=== PATIENT | male | born 1950 | race Caucasian/White ===

== ENCOUNTER 2020-09-16 12:56 | Emergency (ER) | payer MEDICARE, BC ==
[2020-09-16] MEDS ORDERED: Sodium Chloride 0.9% 10 ML Syringe FLUSH PRN (13:04)
[2020-09-16 13:26] VITALS: BP 114/65; PULSE 65
[2020-09-16 13:37] LABS: ANION GAP 8.5 meq/L (7-15); CHLORIDE,CL 105 mmol/L (98-107); SODIUM,NA 138 mmol/L (136-145)
[2020-09-16] MEDS: Loperamide 2 MG Tab PO ONE (14:12)
--- NOTE | 2020-09-16 14:19 | EDM.PDOC ---
ED HPI GENERAL MEDICAL PROBLEM - General Chief Complaint: Abdominal Pain Stated Complaint: diarrhea Time Seen by Provider: 09/16/20 13:20 Source of Information: Reports: Patient History Limitations: Reports: No Limitations - History of Present Illness INITIAL COMMENTS - FREE TEXT/NARRATIVE: Patient presents for complaint of diarrhea. Originally went to [facility] but sent here as they were concerned that it could be due to Covid. He reports being ill initially with nausea. Did not really vomit but "tried" to vomit and noted that once when standing over toilet he became very clammy and sweaty. That resolved. He then developed watery stools. Is currently improving but notes he has a stool whenever he eats. Intermittent nausea which is also improving. No one else sick. No fevers/chills. No headache/body aches. No URI/Cough complaints. Still urinating. No blood in stool. Has not taken anything for the loose stools. - Related Data Allergies Allergy/AdvReac Type Severity Reaction Status Date / Time No Known Allergies Allergy Verified 07/30/15 13:20 Home Meds: Home Meds Lactobacillus Combo No.11 [Probiotic] 1 each PO DAILY 02/28/13 [History] Multivitamin [Multi-Vitamin Daily] 1 each PO DAILY 02/28/13 [History] Ubidecarenone [Co Q-10] 100 mg PO DAILY 02/28/13 [History] Valsartan [Diovan] 160 mg PO DAILY 02/28/13 [History] Non-Formulary Medication [NF Drug] 1 each PO DAILY 07/30/15 [History] Past Medical History Cardiovascular History: Reports: High Cholesterol, Hypertension Gastrointestinal History: Reports: GERD, Other (See Below) Other Gastrointestinal History: blood in stools ED ROS GENERAL - Review of Systems Review Of Systems: See Below Constitutional: Reports: Malaise. Denies: Fever, Chills, Night Sweats HEENT: Reports: No Symptoms Respiratory: Reports: No Symptoms Cardiovascular: Reports: No Symptoms GI/Abdominal: Reports: Abdominal Pain (cramping at times), Diarrhea, Decreased Appetite, Nausea, Vomiting. Denies: Constipation, Difficulty Swallowing, Distension, Hematemesis, Hematochezia, Mucous in Stool : Reports: No Symptoms Musculoskeletal: Reports: No Symptoms Skin: Reports: No Symptoms Neurological: Reports: No Symptoms Psychiatric: Reports: No Symptoms ED EXAM, GENERAL - Physical Exam Exam: See Below Exam Limited By: No Limitations General Appearance: Alert, WD/WN, No Apparent Distress Ears: Hearing Grossly Normal Nose: No: Nasal Deformity, Nasal Swelling, Nasal Drainage Throat/Mouth: Normal Lips, Normal Voice, No Airway Compromise Head: Atraumatic, Normocephalic Neck: Supple Respiratory/Chest: Lungs Clear, Normal Breath Sounds Cardiovascular: Regular Rate, Rhythm, No Murmur GI/Abdominal: Normal Bowel Sounds, Soft, Non-Tender, No Distention (Male) Exam: Deferred Rectal (Males) Exam: Deferred Back Exam: No: CVA Tenderness (L), CVA Tenderness (R) Extremities: Non-Tender, Normal Capillary Refill Neurological: Alert, Oriented, Normal Cognition, Normal Gait, No Motor/Sensory Deficits Psychiatric: Normal Affect, Normal Mood Skin Exam: Warm, Dry, Intact, Normal Color Course - Vital Signs Last Recorded V/S: Last Vital Signs Temp 36.4 C 09/16/20 13:00 Pulse 65 09/16/20 13:00 Resp 14 09/16/20 13:00 BP 114/65 09/16/20 13:00 Pulse Ox 100 09/16/20 13:00 - Orders/Labs/Meds Orders: Active Orders 24 hr Category Date Time Status Peripheral IV Insertion Adult [OM.PC] Routine Oth 09/16/20 13:04 Ordered Labs: Laboratory Tests 09/16/20 09/16/20 09/16/20 Range/Units 13:11 13:11 13:11 WBC 6.7 (4.0-10.2) K/uL RBC 4.60 (4.33-5.41) M/uL Hgb 15.5 (13.1-16.8) g/dL Hct 44.9 (39.0-49.0) % MCV 97.6 (84.0-98.0) fL MCH 33.7 H (28.2-33.3) pg MCHC 34.5 (31.7-36.0) g/dL RDW 13.2 (11.2-14.1) % Plt Count 118 L (150-350) K/uL Neut % (Auto) 77.9 (45.0-80.0) % Lymph % (Auto) 12.3 (10.0-50.0) % [place] % (Auto) 8.7 (2.0-14.0) % Eos % (Auto) 0.8 (0.0-5.0) % Baso % (Auto) 0.3 (0.0-2.0) % Neut # (Auto) 5.18 (1.40-7.00) K/uL Lymph # (Auto) 0.82 (0.50-3.50) K/uL [place] # (Auto) 0.58 (0.00-1.00) K/uL Eos # (Auto) 0.05 (0.00-0.50) K/uL Baso # (Auto) 0.02 (0.00-0.20) K/uL Sodium 138 (136-145) mmol/L Potassium 4.5 (3.5-5.1) mmol/L Chloride 105 (98-107) mmol/L Carbon Dioxide 24.5 (21.0-32.0) mmol/L Anion Gap 8.5 (7-15) meq/L BUN 13 (7-18) mg/dL Creatinine 0.96 (0.51-1.17) mg/dL Est Cr Clr Drug Dosing TNP Estimated GFR (MDRD) > 60 mL/min Glucose 130 H (70-99) mg/dL Calcium 8.3 L (8.5-10.1) mg/dL Magnesium 1.9 (1.8-2.4) mg/dL Total Bilirubin 0.7 (0.2-1.0) mg/dL AST 56 H (15-37) U/L ALT 68 (12-78) U/L Alkaline Phosphatase 126 H (46-116) IU/L Total Protein 7.1 (6.4-8.2) g/dL Albumin 3.0 L (3.4-5.0) g/dL SARS-CoV-2 RNA (FARAZ) (NEGATIVE) 09/16/20 Range/Units 13:16 WBC (4.0-10.2) K/uL RBC (4.33-5.41) M/uL Hgb (13.1-16.8) g/dL Hct (39.0-49.0) % MCV (84.0-98.0) fL MCH (28.2-33.3) pg MCHC (31.7-36.0) g/dL RDW (11.2-14.1) % Plt Count (150-350) K/uL Neut % (Auto) (45.0-80.0) % Lymph % (Auto) (10.0-50.0) % [place] % (Auto) (2.0-14.0) % Eos % (Auto) (0.0-5.0) % Baso % (Auto) (0.0-2.0) % Neut # (Auto) (1.40-7.00) K/uL Lymph # (Auto) (0.50-3.50) K/uL [place] # (Auto) (0.00-1.00) K/uL Eos # (Auto) (0.00-0.50) K/uL Baso # (Auto) (0.00-0.20) K/uL Sodium (136-145) mmol/L Potassium (3.5-5.1) mmol/L Chloride (98-107) mmol/L Carbon Dioxide (21.0-32.0) mmol/L Anion Gap (7-15) meq/L BUN (7-18) mg/dL Creatinine (0.51-1.17) mg/dL Est Cr Clr Drug Dosing Estimated GFR (MDRD) mL/min Glucose (70-99) mg/dL Calcium (8.5-10.1) mg/dL Magnesium (1.8-2.4) mg/dL Total Bilirubin (0.2-1.0) mg/dL AST (15-37) U/L ALT (12-78) U/L Alkaline Phosphatase (46-116) IU/L Total Protein (6.4-8.2) g/dL Albumin (3.4-5.0) g/dL SARS-CoV-2 RNA (FARAZ) Negative (NEGATIVE) Meds: Medications Discontinued Medications Generic Name Dose Route Start Last Admin Trade Name Freq PRN Reason Stop Dose Admin Loperamide HCl 4 mg 09/16/20 14:04 09/16/20 14:12 Loperamide 2 Mg Tab PO 09/16/20 14:05 4 mg ONETIME ONE Administration Sodium Chloride 10 ml 09/16/20 13:04 Sodium Chloride 0.9% 10 Ml Syringe FLUSH ASDIRECTED PRN Keep Vein Open - Re-Assessments/Exams Free Text/Narrative Re-Assessment/Exam: 09/16/20 16:24 Normal WBC/Na/K. Lower platelets, patient has history of thrombocytopenia. Mildly low calcium. AST/alk phos mildly elevated. Vital signs stable. Exam nonfocal. Covid negative Suspect most likely gastroenteritis. Imodium dose given in ER. Reassurance. Home/rest/stay hydrated. Advance diet as tolerated. Return for recheck if symptoms persist or he has sudden worsening. Departure - Departure Time of Disposition: 14:06 Disposition: Home, Self-Care 01 Condition: Good Clinical Impression: Gastroenteritis - Discharge Information *COPY OF PRESCRIPTION DRUG MONITORING REPORT IN PATIENT SHAUNNA: Not Applicable Instructions: Viral Gastroenteritis, Adult, [id number] Referrals: Alejandra Loco NP [Primary Care Provider] - Forms: ED Department Discharge Additional Instructions: Follow up as needed if it does not start to improve/does not follow a "normal" viral course as we discussed. Avoid dairy for 4-5 days. Avoid overload of bread/pizza type meals. Advance diet as tolerated. OK to take Imodium as we discussed. Return for recheck if you start to worsen again. Sepsis Event Note (ED) - Evaluation Sepsis Screening Result: No Definite Risk - Focused Exam Vital Signs: Vital Signs Temp Pulse Resp BP Pulse Ox 09/16/20 13:00 36.4 C 65 14 114/65 100 - My Orders Last 24 Hours: My Active Orders 09/16/20 13:04 Peripheral IV Insertion Adult [OM.PC] Routine - Assessment/Plan Last 24 Hours: My Active Orders 09/16/20 13:04 Peripheral IV Insertion Adult [OM.PC] Routine
== END 2020-09-16 14:30 | disposition home or self-care (01) ==
LOC: LL.ED 12:56
DX: K52.9 Noninfective gastroenteritis and colitis, unspecified (principal); E78.00 Pure hypercholesterolemia, unspecified; I10 Essential (primary) hypertension; Z20.822 Contact with and (suspected) exposure to COVID-19; Z79.899 Other long term (current) drug therapy
CPT/HCPCS: 36415; 80053; 83735; 85025; 99283; 99284; A9270-GY; U0002

== ENCOUNTER 2021-08-23 13:10 | Emergency (ER) | payer MEDICARE, BC ==
[2021-08-23] MEDS ORDERED: Morphine 10 MG/ML Syringe IVPUSH ONE ×2 (13:30→15:22)
[2021-08-23] MEDS ORDERED: Ondansetron 4 MG/2 ML SDV IVPUSH ONE (13:30)
[2021-08-23] MEDS ORDERED: Sodium Chloride 0.9% 1,000 ML IV ONE (13:36)
[2021-08-23 13:44] LABS: ANION GAP 9.5 meq/L (7-15); CHLORIDE,CL 103 mmol/L (98-107); SODIUM,NA 138 mmol/L (136-145)
[2021-08-23 13:45] LABS: ESTIMATED GFR 72 mL/min (>=60)
[2021-08-23 14:25] VITALS: BP 109/47; PULSE 59
== END 2021-08-23 16:00 ==
LOC: LL.ED 13:10
DX: S72.342A Displaced spiral fracture of shaft of left femur, initial encounter for closed fracture (principal); E78.00 Pure hypercholesterolemia, unspecified; I10 Essential (primary) hypertension; K21.9 Gastro-esophageal reflux disease without esophagitis; Z79.899 Other long term (current) drug therapy; Z87.891 Personal history of nicotine dependence; W18.30XA Fall on same level, unspecified, initial encounter
CPT/HCPCS: 36415; 72170; 80053; 83735; 85025; 96361; 96374; 96375; 96376; 99284-25; J2270; J2405; J3360; J7030

== ENCOUNTER 2023-08-13 07:58 | Emergency (ER) | payer MEDICARE, BC ==
[2023-08-13 08:16] LABS: APPEARANCE,URINE SLIGHTLY CLOUDY; BILIRUBIN,URINE NEGATIVE (NEGATIVE); COLOR,URINE DARK YELLOW; GLUCOSE,URINE NEGATIVE (NEGATIVE); KETONES,URINE NEGATIVE (NEGATIVE); LEUKOCYTE ESTERASE,URINE NEGATIVE (NEGATIVE); NITRITE,URINE NEGATIVE (NEGATIVE); OCCULT BLOOD,URINE SMALL (NEGATIVE); PROTEIN,URINE NEGATIVE (NEGATIVE)
[2023-08-13 08:25] LABS: BACTERIA,URINE NOT SEEN /HPF (NONE TO FEW); RBC,URINE 0-5 /HPF; WBC,URINE 0-5 /HPF
[2023-08-13 09:25] LABS: BASOPHILS ABSOLUTE AUTO 0.02 K/uL (0.00-0.20); BASOPHILS PERCENT AUTO 0.2 % (0.0-2.0); EOSINOPHILS ABSOLUTE AUTO 0.04 K/uL (0.00-0.50); EOSINOPHILS PERCENT AUTO 0.4 % (0.0-5.0); HEMATOCRIT 43.7 % (39.0-49.0); HEMOGLOBIN 14.4 g/dL (13.1-16.8); LYMPHOCYTES ABSOLUTE AUTO 0.97 K/uL (0.50-3.50); LYMPHOCYTES PERCENT AUTO 10.1 % (10.0-50.0); MEAN CORPUSCULAR HEMOGLOBIN 34.3 pg (28.2-33.3); MONOCYTES ABSOLUTE AUTO 1.17 K/uL (0.00-1.00); MONOCYTES PERCENT AUTO 12.2 % (2.0-14.0); NEUTROPHILS PERCENT AUTO 77.1 % (45.0-80.0); PLATELET COUNT,PLT 152 K/uL (150-350); RED CELL DISTRIBUTION WIDTH 14.1 % (11.2-14.1); WHITE BLOOD CELL COUNT,WBC 9.6 K/uL (4.0-10.2)
[2023-08-13] MEDS ORDERED: Naloxone 0.4 MG/ML SDV IVPUSH PRN (09:25)
[2023-08-13] MEDS: Ondansetron 4 MG/2 ML SDV IVPUSH PRN (09:28)
[2023-08-13] MEDS: fentaNYL 50 MCG/ML SDV IVPUSH ONE (09:29)
[2023-08-13] MEDS: Sodium Chloride 0.9% 10 ML Syringe FLUSH PRN (09:30)
[2023-08-13 09:44] LABS: ALBUMIN 2.1 g/dL (3.4-5.0); BILIRUBIN TOTAL 1.7 mg/dL (0.2-1.0); CALCIUM 8.9 mg/dL (8.5-10.1); CARBON DIOXIDE,CO2 27.5 mmol/L (21.0-32.0); CREATININE 0.88 mg/dL (0.51-1.17); EST CRCL DRUG DOSING (CG) 78.44 mL/min; POTASSIUM,K 3.9 mmol/L (3.5-5.1); PROTEIN TOTAL,TP 8.7 g/dL (6.4-8.2)
[2023-08-13 09:45] LABS: ANION GAP 11.4 meq/L (7-15)
[2023-08-13 10:06] LABS: INR 1.2 (0.9-1.1); PROTHROMBIN TIME 11.7 SEC (9.0-11.1)
[2023-08-13] MEDS: Losartan 50 MG Tab PO ONE (10:19)
[2023-08-13] MEDS: Ketorolac 15 MG/ML SDV IVPUSH ONE (10:28)
[2023-08-13] MEDS: Tamsulosin 0.4 MG Cap.ER PO ONE ×2 (10:28→11:19)
[2023-08-13] MEDS: Take Home: Ketorolac 10 MG Tab, 4 Tab Pack PO ONE (11:19)
[2023-08-13 11:20] VITALS: BP 130/85; PULSE 75
== END 2023-08-13 11:28 | disposition home or self-care (01) ==
LOC: LL.ED 07:58
DX: N23 Unspecified renal colic (principal); I10 Essential (primary) hypertension; E78.00 Pure hypercholesterolemia, unspecified; K21.9 Gastro-esophageal reflux disease without esophagitis; Z79.82 Long term (current) use of aspirin; Z79.899 Other long term (current) drug therapy
CPT/HCPCS: 36415; 74176; 80053; 81001; 85025; 85610; 96374; 96375; 99284; A9270; J1885; J2405; J3010; J3490

== ENCOUNTER → 2024-02-15 | Day surgery (SDC) | payer MEDICARE, BC, OTHER ==
[~2024-02-15] MED LIST: Glycopyrrolate 0.2 MG/ML SDV IVPUSH ONE; Lidocaine 2% 5 ML SDV ONE; Midazolam 1 MG/ML 2 ML SDV ONE; Propofol 200 MG/20 ML SDV ONE; Sodium Chloride 0.9% 10 ML Syringe FLUSH PRN
[2024-02-15 10:38] VITALS: BP 121/68; PULSE 75
[2024-02-15] MEDS: Lactated Ringers 1,000 ML IV SCH (10:56)
== END | disposition home or self-care (01) ==
LOC: LL.SDS 10:12
PROVIDERS: ATTEND Surgery
DX: K29.51 Unspecified chronic gastritis with bleeding (principal); K21.9 Gastro-esophageal reflux disease without esophagitis; D64.9 Anemia, unspecified; E78.2 Mixed hyperlipidemia; G47.00 Insomnia, unspecified; Z87.891 Personal history of nicotine dependence; Z79.899 Other long term (current) drug therapy
CPT/HCPCS: 00813; 99100; J1596; J2250; J2704; J3490; J7120